=== PATIENT | female | born 1960 | race African-American/Black ===

== ENCOUNTER 2017-12-27 09:54 | Emergency (ER) | payer BC ==
[2017-12-27] MEDS ORDERED: predniSONE TAB* 20 MG PO ONE (10:36)
--- NOTE | 2017-12-27 10:36 | ED ---
Skin Complaint - HPI Summary HPI Summary: Patient here with right-sided facial erythema, edema, pruritis x 4 days. Reports she was in a garden Friday night where there were little bugs that could've potentially bitten her in this area. She had pain itching and swelling Friday morning and has had persistent itching and swelling that's worsened since. Started as a few small areas that appeared to be swollen, indivdual bug bites - small red raised areas w/ central pinpoint. She reports that her eye was a little watery on this side the other day but denies foreign body sensation, change in vision, discharge, grittiness or pain. She wears contact lenses and took them out today for the first time - I has not been watering since. She denies fever, chills, nausea, vomiting, diarrhea, URI symptoms, difficulty breathing or swallowing. 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 He is tried topical hydrocortisone along with Benadryl and episode her regular all without relief. Immunizations are up-to-date. 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 Pain Intensity: 0 - Allergy/Home Medications Allergies/Adverse Reactions: Allergies Allergy/AdvReac Type Severity Reaction Status Date / Time No Known Allergies Allergy Verified 11/27/14 12:08 Home Medications: Home Medications Cholecalciferol TAB* [Vitamin D TAB*] 1,000 unit PO DAILY 12/27/17 [History Confirmed 12/27/17] PMH/Surg Hx/FS Hx/Imm Hx Previously Healthy: Yes Endocrine/Hematology History: Reports: Other Endocrine/Hematological Disorders - "cold urticaria" GI History: Reports: Hx Irritable Bowel - AT TIMES Musculoskeletal History: Reports: Hx Arthritis - LEFT KNEE, Hx Osteoporosis Sensory History: Reports: Hx Contacts or Glasses - BOTH Denies: Hx Hearing Aid Opthamlomology History: Reports: Hx Contacts or Glasses - BOTH Neurological History: Denies: Hx Headaches - Cancer History Hx Chemotherapy: No Hx Radiation Therapy: No - Surgical History Hx Anesthesia Reactions: No - Immunization History Immunizations Up to Date: Yes Infectious Disease History: No Infectious Disease History: Denies: Hx Clostridium Difficile, Hx Hepatitis, Hx Human Immunodeficiency Virus (HIV), Hx of Known/Suspected MRSA, Hx Shingles, Hx Tuberculosis, Traveled Outside the [place] in Last 30 Days - Family History Known Family History: Positive: None - Social History Occupation: Employed Full-time Lives: With Family Alcohol Use: Rare Hx Substance Use: No Substance Use Type: Reports: None Hx Tobacco Use: Yes Smoking Status (MU): Current Every Day Smoker Type: Cigarettes Amount Used/How Often: 1/2 ppd Review of Systems Constitutional: Negative Positive: Drainage - watery (yesterday). Negative: Photophobia, Blurred Vision , Diplopia, Erythema ENT: Negative Negative: Epistaxis, Dental Pain, Sore Throat, Ear Ache, Nasal Discharge Cardiovascular: Negative Respiratory: Negative Gastrointestinal: Negative Positive: no symptoms reported Musculoskeletal: Negative Positive: Rash Neurological: Negative Psychological: Normal All Other Systems Reviewed And Are Negative: Yes Physical Exam Triage Information Reviewed: Yes Vital Signs On Initial Exam: Initial Vitals Temp Pulse Resp BP Pulse Ox 95.8 F 79 16 131/88 99 12/27/17 09:55 12/27/17 09:55 12/27/17 09:55 12/27/17 09:55 12/27/17 09:55 Vital Signs Reviewed: Yes Appearance: Positive: Well-Appearing, No Pain Distress, Well-Nourished Skin: Positive: Warm, Skin Color Reflects Adequate Perfusion, Dry - confluence of erythema and edema about the Rt lateral and infraorbital eye region, same erthyma and swelling preauricular and in Rt axillary region - no vesicles identified, no stingers, no streaking, no fluctuance Head/Face: Positive: Other - as above Eyes: Positive: Normal, EOMI, Conjunctiva Clear, Other: - no lesions observed along conjunctiva. Negative: Conjunctiva Inflammed, Discharge ENT: Positive: Normal ENT inspection, Hearing grossly normal, Pharynx normal - no lesions, Nasal congestion, Nasal drainage, TMs normal - no lesions, Sinus tenderness. Negative: Tonsillar swelling, Tonsillar exudate, Uvula midline Neck: Positive: Supple, Nontender, No Lymphadenopathy Respiratory/Lung Sounds: Positive: Clear to Auscultation, Breath Sounds Present Cardiovascular: Positive: Normal, RRR, S1, S2 Musculoskeletal: Positive: Normal, Strength/ROM Intact Neurological: Positive: Normal, Sensory/Motor Intact, Alert, Oriented to Person Place, Time, CN Intact II-III Psychiatric: Positive: Normal Diagnostics - Vital Signs Vital Signs Temp Pulse Resp BP Pulse Ox 12/27/17 09:55 95.8 F 79 16 131/88 99 - Laboratory Lab Statement: Any lab studies that have been ordered have been reviewed, and results considered in the medical decision making process. Course/Dx - Course Course Of Treatment: Urticaria versus shingles. With known contact with insects and patient's history of urticaria in the absence of observed vesicles, suspect this is a dermatitis, allergic in nature. She does not appear to have any lesions on the conjunctiva or sclera. She'll be prescribed a 5 day course of prednisone and advised to avoid applying any further topical agents. She will also follow up with her PCP this week. If danger signs symptoms present she'll return to the emergency department. We also discussed the option that if she develops a gritty/ foreign body sensation in the right eye, she may follow-up with Dr. Pranay Eisenberg. Contact information provided. - Diagnoses Provider Diagnoses: Urticaria Discharge - Sign-Out/Discharge Documenting (check all that apply): Discharge/Admit/Transfer - Discharge Plan Condition: Stable Disposition: HOME Prescriptions: predniSONE TAB* [Deltasone TAB*] 40 mg PO DAILY #8 tab Patient Education Materials: Urticaria (ED) Referrals: Raúl Hernandez MD [Primary Care Provider] - Shun Pires MD [Medical Doctor] - Additional Instructions: You appear to be having a reaction to one or multiple bug bites. Is important that you avoid itching or rubbing your face to reduce inflammation and further reaction. You may apply a cool compress to help with itching as well as antihistamines. Additionally a steroid has been written for you today. Please complete the course and follow-up with PCP this week. Call Friday to schedule an appointment. *If you develop headache, visual change, gritty sensation in your eye, difficulty swallowing or breathing, return to the emergency department. *If you develop change in her vision, you may return here or contact Dr. Pranay Eisenberg at the number provided. - Billing Disposition and Condition Condition: STABLE Disposition: HOME
[2017-12-27 10:58] VITALS: BP 106/63
== END 2017-12-27 11:03 | disposition home or self-care (01) ==
LOC: ED 09:54
DX: L50.9 Urticaria, unspecified (principal); F17.210 Nicotine dependence, cigarettes, uncomplicated
CPT/HCPCS: 99282; J7512

== ENCOUNTER 2018-07-19 19:46 | Emergency (ER) | payer BC ==
[2018-07-19 20:06] VITALS: BP 119/75
[2018-07-19] MEDS ORDERED: Tetan/Diph/Pertus SYR(Tdap)* 0.5 ML SYR(BOOSTRIX) use SYR IM ONE (20:16)
[2018-07-19] MEDS ORDERED: Cephalexin CAP* 500 MG PO ONE ×2 (20:23→20:48)
--- NOTE | 2018-07-19 20:32 | UC ---
Laceration HPI - HPI Summary HPI Summary: 57 y/o female presents to the urgent care c/o laceration on her RT ring finger w/ a pruning sujatha while cutting some plants yesterday around 1430pm. bleeding was minimum and stopped w/ pressure. her cleaned and covered w/ steri strips. However this morning she woke up w/ pain and swelling and some mild redness. Pt is not sure when was last Tetanus vaccine. Pt took Ibuprofen PO last night to alleviate symptoms, she can move finger w/o any difficulty. Pt denies fever, numbness or tingling sensation over the hand or finger, SOB, chest pain, abdominal pain, N/V/D. - History Of Current Complaint Chief Complaint: UCLaceration Stated Complaint: FINGER LAC Time Seen by Provider: 07/19/18 19:53 Hx Obtained From: Patient Laceration Location: Finger - RT 4th finger superficial laceration Mechanism Of Injury: Sharp Trauma Onset/Duration: Sudden Onset, Lasting Days - 1 day Severity: Mild Pain Intensity: 3 Pain Scale Used: 0-10 Numeric Aggravating Factors: Movement, Other: - touch Related History: Dominant Hand Left - Allergies/Home Medications Allergies/Adverse Reactions: Allergies Allergy/AdvReac Type Severity Reaction Status Date / Time No Known Allergies Allergy Verified 07/19/18 20:00 PMH/Surg Hx/FS Hx/Imm Hx Previously Healthy: Yes - Pt denies PMHX - Surgical History Surgical History: None - Family History Known Family History: Positive: None - Pt denies FMHX - Social History Occupation: Employed Full-time Lives: With Family Alcohol Use: Rare Substance Use Type: None Smoking Status (MU): Current Every Day Smoker Type: Cigarettes Amount Used/How Often: 1/2 ppd - Immunization History Hx Tetanus, Diphtheria Vaccination: No - unsure Review of Systems All Other Systems Reviewed And Are Negative: Yes Constitutional: Positive: Negative Skin: Positive: Other - Rt 4th finger w/ a laceration, red and swelling and painful Eyes: Positive: Negative ENT: Positive: Negative Respiratory: Positive: Negative Cardiovascular: Positive: Negative Gastrointestinal: Positive: Negative Genitourinary: Positive: Negative Motor: Positive: Negative Neurovascular: Positive: Negative Musculoskeletal: Positive: Other: - RT 4th PIPJ pain s/p laceration Neurological: Positive: Negative Psychological: Positive: Negative Is Patient Immunocompromised?: No Physical Exam - Summary Physical Exam Summary: Vital Signs Reviewed: Yes General: well developed, well nourished female sitting in the examining table w/ o any apparent distress Eye Exam: Normal Eyes: Positive: Conjunctiva Clear - PERRLA, EOMI, fundi grossly normal ENT: Positive: Normal ENT inspection, Hearing grossly normal, Pharynx normal, TMs normal Neck: Positive: Supple, Nontender, No Lymphadenopathy Respiratory: Positive: Chest non-tender, Lungs clear, Normal breath sounds, No respiratory distress Cardiovascular: Positive: RRR, No Murmur, Pulses Normal, Brisk Capillary Refill Abdomen Description: Positive: Nontender, No Organomegaly, Soft. Negative: CVA Tenderness (R), CVA Tenderness (L) Bowel Sounds: Positive: Present Musculoskeletal: Positive: Strength Intact, ROM Intact, No Edema Neurological: Positive: Alert, Muscle Tone Normal Psychological Exam: Normal Skin: Positive:dorsal side of the RT 4th PIPJ w/ a semilunar irregular superficial laceration about 1.5cm in size, non bleeding, no foreign body observed. mild tenderness to palpation, mild swelling and surrounding erythema w/ FROM of the PIPJ. FROM of RT hand, sensation intact, capillary refill brisk, and pulses WNL. Triage Information Reviewed: Yes Vital Signs: Initial Vital Signs Temp 98.4 F 07/19/18 20:00 Pulse 70 07/19/18 20:00 Resp 16 07/19/18 20:00 BP 119/75 07/19/18 20:00 Pulse Ox 97 07/19/18 20:00 Laceration Repair - Laceration Repair 1 Description: Irregular - semilunar superficial laceration of the dorsal side of the 4th PIPJ Laceration Size After Repair: Length (cm) - 1.5cm Modified For Repair: No Cleansing Completed Via Routine Prep: Yes Closure Material: Skin Adhesive, SteriStrips - 3 Closure Method: Single Layer Suture Of: Skin Laceration Course/Dx - Course/Dx Course Of Treatment: 57 y/o female presents to the urgent care c/o laceration on her RT ring finger w/ a pruning sujatha while cutting some plants yesterday around 1430pm. bleeding was minimum and stopped w/ pressure. her cleaned and covered w/ steri strips. However this morning she woke up w/ pain and swelling and some mild redness. Pt is not sure when was last Tetanus vaccine. Pt took Ibuprofen PO last night to alleviate symptoms, she can move finger w/o any difficulty. Pt denies fever, numbness or tingling sensation over the hand or finger, SOB, chest pain, abdominal pain, N/V/D. Hx obtained. Pt w/ dorsal side of the RT 4th PIPJ w/ a semilunar irregular superficial laceration about 1.5cm in size, non bleeding, no foreign body observed. mild tenderness to palpation, mild swelling and surrounding erythema w/ FROM of the PIPJ on examination. laceration is more than 24hrs however since Nurse removed steri-strip, wound was cleaned and irrigated well, Laceration closed w/ skin adhesive and 3 steri-strips. Wound dressed w/ sterile gauze.The Pt tolerated the procedure well without adverse effects. Neurovascular intact and FROM of finger. Tdap ordered and applied by nurse. Pt Rx Keflex PO as directed below, first dose givne at the clinic tonight. Pt advised if any signs of infection develop to immediately return to the urgent care of PCP for further management and treatment. d/C instructions explained. Pt understood and agreed and left the clinic ambulating A&Ox3. - Differential Dx - Laceration/Wound Differental Diagnoses: Abrasion, Avulsion, Cellulitis, Healing Wound, Laceration , Puncture Wound - Diagnosis Provider Diagnosis: Laceration of finger, right Discharge - Sign-Out/Discharge Documenting (check all that apply): Patient Departure - D/C home All imaging exams completed and their final reports reviewed: No Studies - Discharge Plan Condition: Stable Disposition: HOME Prescriptions: Bacitracin OINTMENT* 1 applic TOPICAL BID #1 tube Cephalexin CAP* [Keflex CAP*] 500 mg PO QID #27 cap Patient Education Materials: Laceration (ED), Skin Adhesive Care (ED) Referrals: Raúl Hernandez MD [Primary Care Provider] - 1 Week Additional Instructions: 1-Please take full course of antibiotic to avoid resistance. first dose given today 2- Keep wound clean and dry and avoid excessive movement w/ your finger. 3- when steri-strips fall off please apply Bacitracin oint as directed to avoid infection 4-Take Ibuprofen PO q6-8hrs prn after meals for pain or swelling. 5- If you develop fever or redness around your finger despite the antibiotic please go to the ER immediately or return to the Urgent care. - Billing Disposition and Condition Condition: STABLE Disposition: Home
== END 2018-07-19 20:56 | disposition home or self-care (01) ==
LOC: UCEAST 19:46
DX: S61.214A Laceration without foreign body of right ring finger without damage to nail, initial encounter (principal); W27.8XXA Contact with other nonpowered hand tool, initial encounter; Y93.H2 Activity, gardening and landscaping; Y92.9 Unspecified place or not applicable; Z23 Encounter for immunization; F17.210 Nicotine dependence, cigarettes, uncomplicated
CPT/HCPCS: 12001; 90471; 90715; 99212; A9270-GY; G0463

== ENCOUNTER 2019-02-05 21:13 | Emergency (ER) | payer BC ==
[2019-02-05 21:39] VITALS: BP 125/87
--- NOTE | 2019-02-05 21:40 | UC ---
Skin Complaint HPI - HPI Summary HPI Summary: 58 y/o female presents to the urgent care c/o a recurring rash on the posterior upper left thigh, painful to touch for the past 3 days. Pt reports this is the third time this rash appear this year on the same spot and it resolves by itself after a week. However this time it is more painful, 5/10 at touch. It ws some clear blisters and she is concerned about herpes II, since she tested positive last year. Pt denies Hx of shingles and can't recall is she had chicken pox as a child. Pt states the rash is warm to touch. Pt has not taken anything to alleviate symptoms. Pt denies fever, HAZEL, dizziness, SOB, chest pain,abdominal pain, Hx of tick bites or insect bites. No PMHX of MRSA. 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 Negative: Fever, Chills Related History: Other: - Pt thingk sit is herpes since she tested postive for it last year - Allergy/Home Medications Allergies/Adverse Reactions: Allergies Allergy/AdvReac Type Severity Reaction Status Date / Time No Known Allergies Allergy Verified 02/05/19 21:39 PMH/Surg Hx/FS Hx/Imm Hx Previously Healthy: Yes Other Endocrine History: Osteoporosis - Surgical History Surgical History: Yes Surgery Procedure, Year, and Place: wisdom teeth, LEEP, - Family History Known Family History: Positive: None - Pt denies FMHX, Pt is adopted - Social History Occupation: Employed Full-time Lives: With Family Alcohol Use: Occasionally Substance Use Type: None Substance Use Comment - Amount & Last Used: 1 litre Pepsi daily Smoking Status (MU): Heavy Every Day Tobacco Smoker Type: Cigarettes Amount Used/How Often: 1/2 ppd - Immunization History Hx Tetanus, Diphtheria Vaccination: No - unsure Review of Systems All Other Systems Reviewed And Are Negative: Yes Constitutional: Positive: Negative Skin: Positive: Rash - painful red rash in the posterior left thigh Eyes: Positive: Negative ENT: Positive: Negative Respiratory: Positive: Negative Cardiovascular: Positive: Negative Gastrointestinal: Positive: Negative Genitourinary: Positive: Negative Motor: Positive: Negative Neurovascular: Positive: Negative Musculoskeletal: Positive: Negative Neurological: Positive: Negative Psychological: Positive: Negative Is Patient Immunocompromised?: No Physical Exam - Summary Physical Exam Summary: Vital Signs Reviewed: Yes General: well appearing, well nourished female in no acute apparent pain distress, sitting comfortably on examining table Eye Exam: Normal Eyes: Positive: Conjunctiva Clear - PERRLA< EOMI, fundi grossly normal ENT: Positive: Normal ENT inspection, Hearing grossly normal, Pharynx normal, TMs normal Neck: Positive: Supple, Nontender, No Lymphadenopathy Respiratory: Positive: Chest non-tender, Lungs clear, Normal breath sounds, No respiratory distress Cardiovascular: Positive: RRR, No Murmur, Pulses Normal, Brisk Capillary Refill Abdomen Description: Positive: Nontender, No Organomegaly, Soft. Negative: CVA Tenderness (R), CVA Tenderness (L) Bowel Sounds: Positive: Present Musculoskeletal: Positive: Strength Intact, ROM Intact, No Edema Neurological: Positive: Alert, Muscle Tone Normal Psychological Exam: Normal Skin: Positive: Left posterior upper thigh Positive erythematous patch w/ indistinct borders, center w/ 3 small blisters w/ clear drainage, about [id number] in size, warm and tender to palpation,. pulses WNL, capillary refill brisk, sensation WNL. sample taken from blister from wound culture and herpes simplex Triage Information Reviewed: Yes Vital Signs: Initial Vital Signs Temp 99.0 F 02/05/19 21:31 Pulse 85 02/05/19 21:31 Resp 16 02/05/19 21:31 BP 125/87 02/05/19 21:31 Pulse Ox 97 02/05/19 21:31 Course/Dx - Course Course Of Treatment: 58 y/o female presents to the urgent care c/o a recurring rash on the posterior upper left thigh, painful to touch for the past 3 days. Pt reports this is the third time this rash appear this year on the same spot and it resolves by itself after a week. However this time it is more painful, 5/10 at touch. It ws some clear blisters and she is concerned about herpes II, since she tested positive last year. Pt denies Hx of shingles and can't recall is she had chicken pox as a child. Pt states the rash is warm to touch. Pt has not taken anything to alleviate symptoms. Pt denies fever, HAZEL, dizziness, SOB, chest pain,abdominal pain, Hx of tick bites or insect bites. No PMHX of MRSA. Hx obtained. Pt w/ Left posterior upper thigh Positive erythematous patch w/ indistinct borders, center w/ 3 small blisters w/ clear drainage, about [id number] in size, warm and tender to palpation on examination. Sample taken from blister from wound culture and herpes simplex. Pt will be notified of any abnormality. Wound irrigated with saline water. bacitracin applied and covered with sterile dressing. Pt Rx Keflex PO (first dose given at the clinic tonight) , bactroban topical ointment as directed below. Pt advised if not improvement of symptoms to f/u with her PCP or Study Lead DR Stephen for further management. If redness doubles in size or fever develops despite taking ABX to go immediately to the ER. D/C instructions explained. Pt understood and agreed w / plan of care - Differential Diagnoses - Skin Complaint Differential Diagnoses: Abscess, Cellulitis, Contact Dermatitis, Local Allergic Reaction, MRSA, Varicella Zoster, Other - herpes simplex - Diagnoses Provider Diagnosis: Cellulitis of left thigh Discharge - Sign-Out/Discharge Documenting (check all that apply): Patient Departure - D/c home All imaging exams completed and their final reports reviewed: No Studies - Discharge Plan Condition: Stable Disposition: HOME Prescriptions: Cephalexin CAP* [Keflex CAP*] 500 mg PO TID #20 cap Mupirocin 2% OINT* [Bactroban 2 % Oint*] 1 applic TOPICAL BID #1 tube Patient Education Materials: Cellulitis (ED) Referrals: Raúl Hernandez MD [Primary Care Provider] - 3 Days Lily Stephen [Medical Doctor] - 1 Week Additional Instructions: 1-Please take full course of Antibiotic. first dose given tonight. Take yogurt w/ probiotics or Culturelle to protect your GI system 2-If redness and swelling doubles in size after 48 hrs of taking antibiotic and fever develops please go to the ER immediately. 3-Avoid standing for long periods, keep wound clean and dry. Apply Bactroban topical cream over the rash to alleviate symptoms 4-Please F/u with your PCP or w/ Study Lead is rash returns or if not improvement of symptoms for further evaluation and treatment. 5-Wound cultures and Herpes culture were sent to lab. you will be notified of any abnormal result - Billing Disposition and Condition Condition: STABLE Disposition: Home - Attestation Statements Provider Attestation: I was available for consult. This patient was seen by the [facility]. The patient was not presented to, seen by, or examined by me. -Latricia
[2019-02-05] MEDS ORDERED: Cephalexin CAP* 500 MG PO ONE (22:10)
--- NOTE | 2019-02-07 08:20 | UC ---
- Progress Note Progress Note: Wound culture results reviewed Gram stain with 1+ epithelial cells, no neutrophils, no organisms Wound culture pending Patient is on Keflex and topical mupirocin ointment Await final culture and sensitivity No change in plan Course/Dx - Diagnoses Provider Diagnoses: Cellulitis of left thigh Discharge - Sign-Out/Discharge Documenting (check all that apply): Post-Discharge Follow Up All imaging exams completed and their final reports reviewed: No Studies - Discharge Plan Condition: Stable Disposition: HOME Prescriptions: Cephalexin CAP* [Keflex CAP*] 500 mg PO TID #20 cap Mupirocin 2% OINT* [Bactroban 2 % Oint*] 1 applic TOPICAL BID #1 tube Patient Education Materials: Cellulitis (ED) Referrals: Raúl Hernandez MD [Primary Care Provider] - 3 Days Lily Stephen [Medical Doctor] - 1 Week Additional Instructions: 1-Please take full course of Antibiotic. first dose given tonight. Take yogurt w/ probiotics or Culturelle to protect your GI system 2-If redness and swelling doubles in size after 48 hrs of taking antibiotic and fever develops please go to the ER immediately. 3-Avoid standing for long periods, keep wound clean and dry. Apply Bactroban topical cream over the rash to alleviate symptoms 4-Please F/u with your PCP or w/ Geodetic Surveyor Technologist is rash returns or if not improvement of symptoms for further evaluation and treatment. 5-Wound cultures and Herpes culture were sent to lab. you will be notified of any abnormal result - Billing Disposition and Condition Condition: STABLE Disposition: Home
[2019-02-09 14:59] LABS: Herpes Source LEFT UPPER THIGH
--- NOTE | 2019-02-09 17:31 | UC ---
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 If area is healing with current treatment - no change. If area is not healing or improving, she would likely benefit from antiviral therapy po which we can prescribe for her or she can see her PCP/derm for this as advised at her visit. Course/Dx - Diagnoses Provider Diagnoses: Cellulitis of left thigh Discharge - Sign-Out/Discharge Documenting (check all that apply): Post-Discharge Follow Up All imaging exams completed and their final reports reviewed: No Studies - Discharge Plan Condition: Stable Disposition: HOME Prescriptions: Cephalexin CAP* [Keflex CAP*] 500 mg PO TID #20 cap Mupirocin 2% OINT* [Bactroban 2 % Oint*] 1 applic TOPICAL BID #1 tube Patient Education Materials: Cellulitis (ED) Referrals: Raúl Hernandez MD [Primary Care Provider] - 3 Days Lily Stephen [Medical Doctor] - 1 Week Additional Instructions: 1-Please take full course of Antibiotic. first dose given tonight. Take yogurt w/ probiotics or Culturelle to protect your GI system 2-If redness and swelling doubles in size after 48 hrs of taking antibiotic and fever develops please go to the ER immediately. 3-Avoid standing for long periods, keep wound clean and dry. Apply Bactroban topical cream over the rash to alleviate symptoms 4-Please F/u with your PCP or w/ [facility] is rash returns or if not improvement of symptoms for further evaluation and treatment. 5-Wound cultures and Herpes culture were sent to lab. you will be notified of any abnormal result - Billing Disposition and Condition Condition: STABLE Disposition: Home
== END 2019-02-05 22:45 | disposition home or self-care (01) ==
LOC: UCEAST 21:13
DX: L03.116 Cellulitis of left lower limb (principal); F17.210 Nicotine dependence, cigarettes, uncomplicated
CPT/HCPCS: 87070; 87205; 87529; 99212; A9270-GY; G0463